=== PATIENT | female | born 1985 | race Caucasian/White ===

== ENCOUNTER 2019-01-12 07:55 | Observation (INO) ==
--- NOTE | 2019-01-12 14:37 | Acute Care Surgery H&P ---
Date of Encounter: 01/12/19 Time of Encounter: 11:30 Assessment and Plan (1) Acute cholecystitis due to biliary calculus Current Visit: Yes Status: Acute The assessment and plan as outlined above was discussed with the patient and/or family members who expressed understanding and agreement. All questions were answered. Pt diagnosis of acute cholecystitis and symptomatic cholelithiasis is discussed. Laparoscopic Cholecystectomy is recommended. Procedure for the surgery, risks and benefits are discussed in detail. Possible known complications for Laparoscopic Cholecystectomy are bleeding, infection, bile duct injury, bile leak, small intestine or stomach injury, stroke, DVT/PE, [place] or . Pt understands these risks, which in this case are . Pt wishes to proceed with surgery as soon as possible. Informed consent is obtained. Pt condition is stable. Surgery is scheduled. History of Present Illness Chief complaint: RUQ abd pain HPI: This 33 y/o female pt presents to [facility] from [place] [facility] c/o severe RUQ abdominal pain. Pt reports pain is severe and unrelenting. Pt c/o epigastric pain as well. Pt reports pain radiates into back. Pt reports intractable nausea and vomiting. Pt denies changes in BM. Pt denies CP or SOB. Pt denies fever. Past Med Surg Social Fam HX - Past Medical History Medical history: migraine Additional medical history: compartment syndrome Psychiatric history: anxiety, bipolar, depression, PTSD - Past Surgical History Surgical History: other (Previous right lower extremity infection with fasciotomy) Additional surgical history: Lt foot d/t fracture, 12/02 Right leg - Social History Smoking Status: Current every day smoker Packs per day: 1.5 Smokeless Tobacco Status: No Alcohol use: none Drug use: none - Family History Father Hx Family Cardiac Disorders: Yes (cardiac hx, thrombosis) Medications and Allergies Ibuprofen [Motrin] 600 mg PO Q6H PRN #40 tablet 01/21/16 [Rx] Ursodiol 250 mg PO BID 01/12/19 [History] Allergy/AdvReac Type Severity Reaction Status Date / Time Penicillins Allergy Rash Verified 01/12/19 04:51 Review of Systems All systems PM: The remainder of the systems were reviewed and are negative - Constitutional no anorexia, no chills, no fatigue, no fever(s), no night sweats, no weakness - EENT Nose, mouth and throat: no dizziness, no dry mouth, no nasal congestion, no nasal discharge, no sinus pain, no sinus pressure, no sore throat - Cardiovascular no chest pain, no diaphoresis, no dyspnea, no edema - Respiratory no cough, no dyspnea, no wheezing - Gastrointestinal abdominal pain, bloating, dyspepsia, heartburn, nausea, vomiting, no constipation, no diarrhea - Genitourinary Genitourinary: no difficulty voiding, no dysuria, no flank pain, no urinary urgency - Musculoskeletal no back pain, no joint swelling, no limited range of motion, no neck pain - Psychiatric no anxiety - Endocrine no fatigue - Hematologic/Lymphatic no easy bleeding, no easy bruising General Surgery Exam Initial Vital Signs Temp Pulse Resp BP Pulse Ox 98.5 F 95 16 100/72 100 01/12/19 09:34 01/12/19 09:34 01/12/19 09:34 01/12/19 09:34 01/12/19 09:34 - General physical appearance no distress, moderate pain. negative: jaundice - Eyes PERRL, normal ocular movement. negative: icteric - ENT no congestion, dry mucosa. negative: nasal discharge - Neck no masses, trachea midline, no lymphadectomy, no venous distension - Respiratory normal respiratory effort, clear to auscultation - Cardiovascular Cardiovascular exam: Present: RRR. Absent: JVD - Abdomen Abdomen general surgery: Present: bowel sounds present, soft, tender. Absent: distended Abdominal Tenderness: Present: RUQ - Genitourinary Present: normal external genitalia - Integumentary Integumentary general surgery: Present: warm and dry - Neurologic Present: CN 2-12 grossly intact, normal coordination - Musculoskeletal Present: normal posture - Psychiatric Psychiatric general surgery: Present: A&Ox3, appropriate Results - Labs All other labs normal. - Imaging CT scan - abdomen: image reviewed (Cholelithiasis with pericholecystic fluid) CT scan - pelvis: image reviewed
[2019-01-12] MEDS ORDERED: 0.9 % Sodium Chloride 1,000 ML IVC SCH (14:45)
--- NOTE | 2019-01-12 15:07 | Anesthesia Evaluation PreOp ---
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: Other (ANXIETY, DEPRESSION) Test: Negative (01/12) Alcohol Use: none Drug use: none Medications and Allergies Ibuprofen [Motrin] 600 mg PO Q6H PRN #40 tablet 01/21/16 [Rx] Ursodiol 250 mg PO BID 01/12/19 [History] Allergy/AdvReac Type Severity Reaction Status Date / Time Penicillins Allergy Rash Verified 01/12/19 04:51 - Meds/Allergy Pre-op Review Medications Reviewed: Yes Allergies Reviewed: Yes Anesthesia Exam Vital Signs/O2 Sat, Most Current Temp Pulse Resp BP Pulse Ox 98.5 F 95 16 100/72 100 01/12/19 09:34 01/12/19 09:34 01/12/19 09:34 01/12/19 09:34 01/12/19 09:34 Weight: 59 KG - BMI 24 NPO (# of Hours): 8 - Cardiac Rhythm: Regular - Pulmonary Breath Sounds: bilateral Clear Anesthesia Assess/Plan Anesthetic Plan: General Monitoring Plan: Standard Monitors Recovery Plan: PACU
[2019-01-12] MEDS ORDERED: Albuterol 2.5 MG/3 ML NEBULIZER IH ONE (17:17)
[2019-01-12] MEDS ORDERED: *HR* OxyCODONE Immed Rel 5 MG TABLET PO PRN (17:19)
[2019-01-12] MEDS ORDERED: *HR* HYDROmorphone (PF) 1 MG/ML SYRINGE IVP PRN (17:19)
[2019-01-12] MEDS ORDERED: Albuterol 2.5 MG/3 ML NEBULIZER ONE (17:21)
[2019-01-12] MEDS ORDERED: Acetaminophen IV 1,000 MG/100 ML INFUS..BTL ONE (17:27)
[2019-01-12] MEDS ORDERED: Famotidine 20 MG/2 ML VIAL ONE (17:27)
[2019-01-12] MEDS ORDERED: *HR* FentaNYL (PF) 100 MCG/2 ML VIAL ONE ×2 (17:40→18:16)
[2019-01-12] MEDS ORDERED: Ondansetron 4 MG/2 ML VIAL ONE (17:41)
[2019-01-12] MEDS ORDERED: Dexamethasone 4 MG/ML VIAL ONE (17:41)
[2019-01-12] MEDS ORDERED: *HR* Midazolam HCl 2 MG/2 ML VIAL ONE (17:41)
[2019-01-12] MEDS ORDERED: Lidocaine -MPF 4% 5 ML AMPUL ONE (17:41)
[2019-01-12] MEDS ORDERED: Lidocaine -MPF 2% 2 ML VIAL ONE (17:41)
[2019-01-12] MEDS ORDERED: *HR* Propofol 200 MG/20 ML VIAL IVP ONE (17:41)
[2019-01-12] MEDS ORDERED: Neostigmine Methylsulfate 3 MG/3 ML SYRINGE ONE (18:58)
[2019-01-12] MEDS ORDERED: Ketorolac 30 MG/ML VIAL ONE (18:59)
[2019-01-12] MEDS ORDERED: *HR* HYDROMORPHONE 2 MG/ML VIAL ONE (19:04)
--- NOTE | 2019-01-12 19:10 | Operative Note ---
Date of procedure: 01/12/19 Pre-op diagnosis: acute cholecystitis with cholelithiasis Post-op diagnosis: same Procedure: Laparoscopic cholecystectomy Complications: none Anesthesia: GETA Surgeon: Yanira Wilson Was there an store administrative assistant present: Yes Concession Stand Attendant: Katherine Dang Estimated blood loss (cc): 50 Specimen: gallbladder Condition: stable Disposition: PACU Procedure in Detail: This 33 year-old male was taken to the operating room and placed in the supine position. The anterior abdominal wall is prepped and draped in the usual sterile fashion. A 1-2 cm curvilinear incision is made in the infraumbilical area and subcutaneous tissue was dissected down to anterior rectus fascia. Fascia is grasped with a Usman clamp, stay sutures were placed in the fascia is divided. Posterior rectus fascia and peritoneum were elevated and divided in the same manner. A Sheri port is inserted. Under direct visualization after the injection of 0.5% Marcaine the x3 5 mm ports are inserted in the right subcostal space under direct visualization. Exploration of the intraabdominal cavity reveals an abnormal gallbladder. The patient is placed in reverse Trendelenburg position and rotated to the left. The gallbladder is grasped and retracted in cephalad direction. It is also grasped and retracted in the lateral direction. The cystic duct was carefully identified circumferentially dissected doubly clipped and divided between clips. The cystic artery is carefully identified and circumferentially dissected and divided between clips. The gallbladder is dissected off the liver bed using electrocautery. Hemostasis was perfected using electrocautery and Mary. The gallbladder is removed from the intra- abdominal cavity using an Endo Catch bag. Copious irrigation is carried out in the intra-abdominal cavity, Naidu's pouch and the gallbladder fossa. The pneumoperitoneum was allowed to escape under direct visualization. The ports were removed also under direct visualization. The fascia at the infraumbilical incision is closed using 0 Vicryl sutures. All skin incisions are closed using 4-0 Monocryl subcuticular stitches. Steri-Strips are placed. Sterile dressing is placed. Patient tolerated procedure well was taken to the PACU in good condition.
--- NOTE | 2019-01-12 20:49 | Anesthesia Evaluation Post Op ---
Date of Encounter: 01/12/19 Time of Encounter: 20:00 - Vital Signs Vital Signs: Vital Signs/O2 Sat/Glucose, Most Current Temp Pulse Resp BP Pulse Ox 01/12/19 20:20 98.3 F 81 16 117/82 100 01/12/19 20:00 99.5 F 70 16 115/77 100 01/12/19 19:39 97.5 F L 69 16 122/82 100 01/12/19 19:29 73 16 126/80 100 01/12/19 19:19 70 16 111/49 100 01/12/19 19:09 97.2 F L 63 16 121/88 100 01/12/19 16:53 98.4 F 91 18 124/84 100 - Lungs Lungs: Clear Ascult./Percussion - Airway Airway: Non-obstructed - Cardiovascular Regular Rate - Mental Status Mental Status: Alert & Oriented, Answers Appropriately - Pain Pain Scale: 0 - Nausea Vomiting Nausea Vomiting: Not Present - Hydration Hydration: Ice chips - Discharge PostOp Status: Transfer Patient to floor
[2019-01-12] MEDS ORDERED: *HR* LORazepam 2 MG/ML VIAL IVP STA (23:09)
[2019-01-12] MEDS ORDERED: Nicotine 21 MG PATCH.TD24 TD SCH (23:11)
[2019-01-13] MEDS: Ketorolac 15 MG/ML VIAL IVP SCH ×2 (00:57→06:21)
[2019-01-13 06:57] VITALS: BP 99/62
[2019-01-13] MEDS ORDERED: levoFLOXacin 500 MG/100 ML 500 MG/100 ML BAG IVPB SCH (08:00)
--- NOTE | 2019-01-13 10:46 | Discharge Summary ---
Orders not resulted at time of discharge: Pending orders 01/12/19 18:43 Surgical Pathology [PTH] Routine Date of Encounter: 01/13/19 Time of Encounter: 10:40 - Discharge Diagnosis (1) Acute cholecystitis due to biliary calculus Priority: Primary Status: Acute (2) Hepatitis C Priority: Secondary Status: Acute Qualifiers: Viral hepatitis chronicity: unspecified Hepatic coma status: without hepatic coma Qualified Code(s): B19.20 - Unspecified viral hepatitis C without hepatic coma General Surgery Exam Initial Vital Signs Temp Pulse Resp BP Pulse Ox 98.5 F 95 16 100/72 100 01/12/19 09:34 01/12/19 09:34 01/12/19 09:34 01/12/19 09:34 01/12/19 09:34 - General physical appearance well developed, well nourished, no distress - Eyes PERRL, normal ocular movement - ENT normal mucosa, atraumatic, normocephalic - Neck trachea midline - Respiratory normal respiratory effort, clear to auscultation - Cardiovascular Cardiovascular exam: Present: RRR - Abdomen Abdomen general surgery: Present: bowel sounds present, soft, tender (Minimal, expected postoperative tenderness) - Incision Incision: Present: clean and dry, intact - Integumentary Integumentary general surgery: Present: warm and dry - Neurologic Present: CN 2-12 grossly intact - Psychiatric Psychiatric general surgery: Present: A&Ox3 - Hospital Course Hospital course: Ms. Lira is a 33 year old female who presents to the hospital with acute onset of abdominal pain. She was found to have acute cholecystitis secondary to gallstones. She was admitted to the hospital and started on IV antibiotics. She was taken to the operating room for a laparoscopic cholecystectomy. On postoperative day #1, she states that her pain has significantly improved. She is tolerating a diet without nausea or vomiting. Her vital signs are stable and she is afebrile. Her postoperative pain is well-controlled. She is voiding and ambulating without difficulty. We will begin discharge planning to home and plan for outpatient follow-up in the next 10-14 days. - Time Spent with Patient Total time spent providing and/or coordinating discharge services: Less than 30 minutes - Discharge Medications Prescriptions: New Ibuprofen [Motrin] 800 mg PO Q8HR #50 tablet Continued Prazosin [Minipress] 1 mg PO DAILY Strattera PO BID HydrOXYzine PO QID Ursodiol 250 mg PO BID Home Medications: HydrOXYzine PO QID 01/12/19 [History] Prazosin [Minipress] 1 mg PO DAILY 01/12/19 [History] Strattera PO BID 01/12/19 [History] Ursodiol 250 mg PO BID 01/12/19 [History] Ibuprofen [Motrin] 800 mg PO Q8HR #50 tablet 01/13/19 [Rx] Allergies/Adverse Reactions: Allergy/AdvReac Type Severity Reaction Status Date / Time Penicillins Allergy Rash Verified 01/12/19 04:51 Date of admission: 01/12/19 09:22 Primary care physician: PCP NONE Consults: 01/12/19 09:44 Consult to Pastoral Services [CONS] Routine Comment: Discharging clinician: Joseph Adams (Ginette Almaraz) Anticipated date of discharge: 01/13/19 Labs on day of discharge: Labs from last 24 hours 01/12/19 13:57 Serum , Qual Negative - Patient Status Disposition: Home, Self-Care Condition: Good Functional capacity at discharge: independent ambulation Overall status at discharge: patient is progressing back to baseline - Discharge Instructions Follow Up With: NONE,PCP [Primary Care Provider] - Phyllis Winters CNP [Advanced Practice Nurse] - 01/26/19 3:15 pm Kathya Ruff MD [Partnered Physician] - (Establish patient. Hepatitis C reactive) Additional Instructions: General Surgical Discharge Instructions 1. No pushing, pulling, or lifting greater than 15 lbs for 2 weeks 2. You may shower beginning today, but no tub baths, soaking, or swimming for 2 weeks. 3. You may resume driving when you are safe to react in a car. 4. Take ibuprofen every 8 hours for discomfort. 5. Take stool softeners (Colace) or a water based laxative (Miralax). You may hold for loose stools. 6. Report any fevers greater than 100.5F, increase abdominal discomfort, drainage that looks like pus, increased redness or pain at the surgical site, or any vomiting. 7. Report any pain in the calves, shortness of breath, or rapid heartbeat. 8. Follow-up in the office as directed. - Diet and Activity Activity: increase activity as tolerated Diet: advance to your usual diet - Attending Attestation For this encounter, I have reviewed the RECORDS MANAGEMENT ENGINEER or PA documentation, treatment plan, and medical decision making; and I have had face to face time with this patient.
== END 2019-01-13 11:30 | disposition home or self-care (01) ==
LOC: 3NENU
PROVIDERS: ADMIT Surgery; ATTEND Surgery

== ENCOUNTER → 2020-08-04 15:30 | Observation (INO) ==
[2020-08-04 13:53] VITALS: BP 107/63
[~2020-08-04 15:30] MED LIST: Betamethasone Acet/SodPhos 30 MG/5 ML VIAL IM SCH
== END | disposition home health service (06) ==
LOC: 1NENULAB
PROVIDERS: ADMIT Obstetrics & Gynecology; ATTEND Obstetrics & Gynecology

== ENCOUNTER → 2020-08-05 15:06 | Observation (INO) ==
[2020-08-05 15:06] VITALS: BP 102/67
== END | disposition home health service (06) ==
LOC: 1NENULAB
PROVIDERS: ADMIT Student in an Organized Health Care Education/Training Program; ATTEND Student in an Organized Health Care Education/Training Program

== ENCOUNTER 2020-08-16 04:00 | Inpatient (IN) ==
[2020-08-16] MEDS ORDERED: Ondansetron 4 MG/2 ML VIAL IVP PRN ×2 (04:47→07:55)
[2020-08-16] MEDS ORDERED: *HR* Nalbuphine 10 MG/ML AMPUL IV PRN (04:47)
[2020-08-16] MEDS ORDERED: Famotidine 20 MG/2 ML VIAL IVP PRN (04:47)
[2020-08-16] MEDS ORDERED: Metoclopramide 10 MG/2 ML VIAL IVP PRN (04:47)
[2020-08-16] MEDS ORDERED: Naloxone 0.4 MG/ML INJ IVP PRN ×2 (04:47→07:55)
[2020-08-16] MEDS ORDERED: Lidocaine 1% 20 ML MDV INFILT PRN (04:47)
[2020-08-16] MEDS ORDERED: Azithromycin 500 MG in 0.9 % Sodium Chloride 250 ML IVPB ONE (04:47)
[2020-08-16] MEDS ORDERED: Lidocaine -MPF 1% 2 ML VIAL ONE (05:11)
[2020-08-16] MEDS: Ringers Solution, Lactated 1,000 ML IVC SCH ×3 (06:08→22:31)
[2020-08-16] MEDS: Oxytocin 20 units/ LR 1000 mL 20 UNIT/1,000 ML BAG IVC SCH (06:09)
[2020-08-16 06:10] LABS: Amphetamine Screen,Urine Negative ng/mL (Cutoff=1000); Barbiturate Screen,Urine Negative ng/mL (Cutoff=200); Benzodiazepines Screen,Urine Negative ng/mL (Cutoff=200); Cannabinoid Screen,Urine Negative ng/mL (Cutoff = 50); Cocaine Screen,Urine Negative ng/mL (Cutoff= 300); Opiate Screen,Urine Negative ng/mL (Cutoff=300); Phencyclidine Screen,Urine Negative ng/mL (Cutoff=25)
[2020-08-16 06:11] LABS: Basophils # 0.1 K/mcL (0.0-0.2); Basophils % 0.7 %; Eosinophils # 0.1 K/mcL (0.0-0.6); Eosinophils % 0.6 %; Hematocrit 32.4 % (35.3-44.9); Hemoglobin 10.9 g/dL (11.5-15.4); Immature Granulocytes % 1.3 % (0-4); Lymphocytes # 2.1 K/mcL (0.6-4.6); Lymphocytes % 20.9 %; Mean Corpuscular HGB Conc 33.6 g/dL (31.6-35.5); Mean Corpuscular Hemoglobin 30.8 pg (28.0-33.3); Mean Corpuscular Volume 91.5 fL (83.0-100.0); Mean Platelet Volume 9.4 fL (9.4-12.4); Monocytes # 0.7 K/mcL (0.0-1.3); Monocytes % 6.6 %; Neutrophils # 7.1 K/mcL (1.6-8.9); Platelet Count 263 K/mcL (140-400); Red Blood Count 3.54 M/mcL (3.82-4.97); Red Cell Distribution Width 13.1 % (11.5-14.5); Segmented Neutrophils % 69.9 %; White Blood Count 10.2 K/mcL (4.3-11.1)
[2020-08-16] MEDS ORDERED: EPHEDrine 50 MG/ML VIAL IVP PRN (07:55)
[2020-08-16] MEDS ORDERED: Ropivacaine/PF 0.2% 20 ML VIAL EP ONE (07:55)
[2020-08-16] MEDS ORDERED: *HR* FentaNYL (PF) 100 MCG/2 ML VIAL EP ONE (07:55)
[2020-08-16 09:09] LABS: Adenovirus Not Detected (Not Detect); Bordetella Pertussis Not Detected (Not Detect); Chlamydophila pneumoniae Not Detected (Not Detect); Coronavirus 229E Not Detected (Not Detect); Coronavirus HKU1 Not Detected (Not Detect); Coronavirus NL63 Not Detected (Not Detect); Coronavirus OC43 Not Detected (Not Detect); Human Metapneumovirus Not Detected (Not Detect); Human Rhinovirus/Enterovirus Not Detected (Not Detect); Influenza A Subtype 2009 H1 Not Detected (Not Detect); Influenza B Not Detected (Not Detect); Mycoplasma pneumoniae Not Detected (Not Detect); Parainfluenza Virus 1 Not Detected (Not Detect); Parainfluenza Virus 2 Not Detected (Not Detect); Parainfluenza Virus 3 Not Detected (Not Detect); Parainfluenza Virus 4 Not Detected (Not Detect); Respiratory Syncytial Virus Not Detected (Not Detect); SARS-CoV-2 Not Detected (Not Detect)
[2020-08-16] MEDS ORDERED: Nicotine 21 MG PATCH.TD24 TD SCH (11:45)
[2020-08-16] MEDS ORDERED: Ropivacaine/PF 0.2% 20 ML VIAL ONE ×2 (14:16→19:29)
[2020-08-16] MEDS: Epidural Premix (fent/bupiv) 110 ML EP SCH ×2 (16:42→22:31)
[2020-08-16] MEDS ORDERED: 0.9 % Sodium Chloride 1,000 ML ONE (23:40)
[2020-08-17] MEDS: Oxytocin 20 units/ LR 1000 mL 20 UNIT/1,000 ML BAG IVC SCH (04:53)
[2020-08-17] MEDS ORDERED: Oxytocin 20 units/ LR 1000 mL 20 UNIT/1,000 ML BAG IVC SCH (05:17)
[2020-08-17] MEDS ORDERED: Lanolin 7 G OINT...G. TP PRN (05:17)
[2020-08-17] MEDS ORDERED: Benzocaine/Menthol 56 GM AEROSOL SPRAY TP PRN (05:17)
[2020-08-17] MEDS: Prenatal Vit/FA 1 EACH TABLET PO SCH (08:32)
[2020-08-17] MEDS: Ibuprofen 600 MG TABLET PO PRN (08:33)
[2020-08-17] MEDS ORDERED: Nicotine 21 MG PATCH.TD24 TD SCH (09:00)
[2020-08-17] MEDS: Acetaminophen 325 MG TABLET PO PRN (19:52)
[2020-08-17] MEDS ORDERED: lamoTRIgine 100 MG TABLET PO SCH (21:00)
[2020-08-18] MEDS: Ibuprofen 600 MG TABLET PO PRN (03:52)
[2020-08-18 07:50] VITALS: BP 114/81
[2020-08-18] MEDS: Acetaminophen 325 MG TABLET PO PRN (08:31)
[2020-08-18] MEDS: Prenatal Vit/FA 1 EACH TABLET PO SCH (08:31)
== END 2020-08-18 11:18 | disposition home or self-care (01) | DRG 560 ==
LOC: 1NENULAB 04:44 → 1NENUOBS 08-17 05:25
PROVIDERS: ADMIT Registered Nurse; ATTEND Registered Nurse